=== PATIENT | male | born 1970 | race American Indian/Alaskan Native ===

== ENCOUNTER 2021-05-22 12:17 | Emergency (ER) | payer BC ==
[2021-05-22 12:39] VITALS: BP 239/120
[2021-05-22] MEDS ORDERED: KETOROLAC 10 MG TAB PO ONE (13:53)
[2021-05-22] MEDS ORDERED: SULFAMETHOXAZOLE/TRIMETHOPRIM 800/160MG DS TAB PO ONE (13:53)
--- NOTE | 2021-05-22 14:12 | Emergency Department Report ---
- General Chief complaint: Skin/Abscess/Foreign Body Stated complaint: ABSCESS/LEFT BREAST Time Seen by Provider: 05/22/21 13:52 Source: patient Mode of arrival: Ambulatory Limitations: No Limitations - History of Present Illness Initial comments: 51-year-old black male with a past medical history of hypertension and asthma presents to the emergency department for evaluation of left breast abscess. He states that he noticed tenderness and swelling to left breast 2 to 3 days ago that has gotten progressively worse. He denies any drainage from area. He denies fever, nausea, vomiting, abdominal pain, and fatigue. MD complaint: abscess/boil -: Gradual, days(s) (2-3) Location: chest (Left breast) Severity: moderate Severity scale (0 -10): 7 Quality: aching Consistency: constant Worsens with: palpation, movement Associated symptoms: denies other symptoms Treatments Prior to Arrival: none - Related Data Previous Rx's Medication Instructions Recorded Last Taken Type Cyclobenzaprine [Flexeril] 10 mg PO Q8H PRN #21 tab 10/28/12 Unknown Rx Hydrocodone Bit/Acetaminophen 1 each PO Q6H PRN #20 tablet 10/28/12 Unknown Rx [Lortab 10-500 Tablet] Lisinopril/Hydrochlorothiazide 1 each PO QDAY #60 tablet 10/28/12 Unknown Rx [Zestoretic 20-25 mg] Cephalexin [Keflex] 500 mg PO QID #40 capsule 12/26/12 Unknown Rx Clotrimazole/Betamethasone Dip 1 applicatio TP BID #45 cream..g. 12/26/12 Unknown Rx [Lotrisone Cream] hydrOXYzine HCL [Atarax] 25 mg PO Q6HR PRN #30 tablet 12/26/12 Unknown Rx predniSONE [Deltasone] 50 mg PO QDAY #5 tab 12/26/12 Unknown Rx traMADoL [Ultram] 50 mg PO Q4HR PRN #15 tablet 05/29/13 Unknown Rx Lisinopril/Hydrochlorothiazide 1 tab PO QDAY #90 tablet 03/22/14 Unknown Rx [Zestoretic 20-12.5 mg] Naproxen [Naprosyn] 500 mg PO BID #14 tab 05/22/21 Unknown Rx Sulfamethoxazole/Trimethoprim 1 each PO BID #14 tab 05/22/21 Unknown Rx [Bactrim DS TAB] Allergies Allergy/AdvReac Type Severity Reaction Status Date / Time No Known Allergies Allergy Unverified 10/28/12 20:10 Abscess Boil HPI - HPI Chief Complaint: Skin/Abscess/Foreign Body Stated Complaint: ABSCESS/LEFT BREAST Time Seen by Provider: 05/22/21 13:52 Home Medications: Previous Rx's Medication Instructions Recorded Last Taken Type Cyclobenzaprine [Flexeril] 10 mg PO Q8H PRN #21 tab 10/28/12 Unknown Rx Hydrocodone Bit/Acetaminophen 1 each PO Q6H PRN #20 tablet 10/28/12 Unknown Rx [Lortab 10-500 Tablet] Lisinopril/Hydrochlorothiazide 1 each PO QDAY #60 tablet 10/28/12 Unknown Rx [Zestoretic 20-25 mg] Cephalexin [Keflex] 500 mg PO QID #40 capsule 12/26/12 Unknown Rx Clotrimazole/Betamethasone Dip 1 applicatio TP BID #45 cream..g. 12/26/12 Unknown Rx [Lotrisone Cream] hydrOXYzine HCL [Atarax] 25 mg PO Q6HR PRN #30 tablet 12/26/12 Unknown Rx predniSONE [Deltasone] 50 mg PO QDAY #5 tab 12/26/12 Unknown Rx traMADoL [Ultram] 50 mg PO Q4HR PRN #15 tablet 05/29/13 Unknown Rx Lisinopril/Hydrochlorothiazide 1 tab PO QDAY #90 tablet 03/22/14 Unknown Rx [Zestoretic 20-12.5 mg] Naproxen [Naprosyn] 500 mg PO BID #14 tab 05/22/21 Unknown Rx Sulfamethoxazole/Trimethoprim 1 each PO BID #14 tab 05/22/21 Unknown Rx [Bactrim DS TAB] Allergies/Adverse Reactions: Allergies Allergy/AdvReac Type Severity Reaction Status Date / Time No Known Allergies Allergy Unverified 10/28/12 20:10 ED Review of Systems ROS: Stated complaint: ABSCESS/LEFT BREAST Other details as noted in HPI Comment: All other systems reviewed and negative Constitutional: denies: chills, fever Respiratory: denies: cough, shortness of breath Cardiovascular: denies: chest pain, palpitations, dyspnea on exertion Gastrointestinal: denies: abdominal pain, nausea, vomiting, diarrhea, hematemesis, melena, hematochezia Musculoskeletal: denies: back pain Skin: other (Left breast abscess) Neurological: denies: headache, weakness ED Past Medical Hx - Past Medical History Hx Hypertension: Yes Hx Asthma: Yes - Social History Smoking Status: Current Every Day Smoker Substance Use Type: None - Medications Home Medications: Home Medications Medication Instructions Recorded Confirmed Last Taken Type Cyclobenzaprine [Flexeril] 10 mg PO Q8H PRN #21 tab 10/28/12 Unknown Rx Hydrocodone Bit/Acetaminophen 1 each PO Q6H PRN #20 tablet 10/28/12 Unknown Rx [Lortab 10-500 Tablet] Lisinopril/Hydrochlorothiazide 1 each PO QDAY #60 tablet 10/28/12 Unknown Rx [Zestoretic 20-25 mg] Cephalexin [Keflex] 500 mg PO QID #40 capsule 12/26/12 Unknown Rx Clotrimazole/Betamethasone Dip 1 applicatio TP BID #45 cream..g. 12/26/12 Unknown Rx [Lotrisone Cream] hydrOXYzine HCL [Atarax] 25 mg PO Q6HR PRN #30 tablet 12/26/12 Unknown Rx predniSONE [Deltasone] 50 mg PO QDAY #5 tab 12/26/12 Unknown Rx traMADoL [Ultram] 50 mg PO Q4HR PRN #15 tablet 05/29/13 Unknown Rx Lisinopril/Hydrochlorothiazide 1 tab PO QDAY #90 tablet 03/22/14 Unknown Rx [Zestoretic 20-12.5 mg] Naproxen [Naprosyn] 500 mg PO BID #14 tab 05/22/21 Unknown Rx Sulfamethoxazole/Trimethoprim 1 each PO BID #14 tab 05/22/21 Unknown Rx [Bactrim DS TAB] ED Physical Exam - General Limitations: No Limitations General appearance: alert, in no apparent distress - Head Head exam: Present: atraumatic, normocephalic - Eye Eye exam: Present: normal appearance. Absent: conjunctival injection - Neck Neck exam: Present: normal inspection - Respiratory Respiratory exam: Present: normal lung sounds bilaterally. Absent: respiratory distress, wheezes, rales, rhonchi, stridor - Cardiovascular Cardiovascular Exam: Present: regular rate, normal heart sounds - GI/Abdominal GI/Abdominal exam: Present: soft, normal bowel sounds. Absent: distended, tenderness, guarding, rebound, rigid - Extremities Exam Extremities exam: Present: normal inspection - Back Exam Back exam: Present: normal inspection. Absent: tenderness - Neurological Exam Neurological exam: Present: alert, oriented X3 - Psychiatric Psychiatric exam: Present: normal affect, normal mood - Skin Skin exam: Present: warm, dry, intact, normal color - Expanded Skin Exam Expanded 1 - Noted to have abscessed area that includes areolae that is 3 cm in diameter. Area noted to be erythematous, edematous, tender, and warm to touch. No drainage noted ED Course Vital Signs 05/22/21 05/22/21 12:35 14:21 Temperature 98 F Pulse Rate 82 Respiratory 16 14 Rate Blood Pressure 239/120 [Left] ED Medical Decision Making - Medical Decision Making 51-year-old black male with a past medical history of hypertension and asthma presents to the emergency department for evaluation of left breast abscess. He states that he noticed tenderness and swelling to left breast 2 to 3 days ago that has gotten progressively worse. He denies any drainage from area. He denies fever, nausea, vomiting, abdominal pain, and fatigue Left breast abscess not fluctuant and because of the location, will treat with antibiotics only and no I&D. Patient will be treated with 7-day course of Bactrim DS twice daily along with naproxen 500 mg twice daily. Patient is advised to take medications as prescribed and follow-up with primary care provider if no improvement or worsening symptoms. Patient noted to be hypertensive but states that he has not taken his antihypertensive medication for the last 2 days but plans on taking them as soon as he gets home. He verbalized understanding of and agreement with plan of care. Critical care attestation.: If time is entered above; I have spent that time in minutes in the direct care of this critically ill patient, excluding procedure time. ED Disposition Clinical Impression: Left breast abscess Disposition: HOME / SELF CARE / HOMELESS Is pt being admited?: No Does the pt Need Aspirin: No Condition: Stable Instructions: Skin Abscess, [id number] Additional Instructions: Take medications as prescribed. Follow-up with primary care provider if no improvement or worsening symptoms. Prescriptions: Sulfamethoxazole/Trimethoprim [Bactrim DS TAB] 1 each PO BID #14 tab Naproxen [Naprosyn] 500 mg PO BID #14 tab Referrals: KING MCKOY MD [Referring] - 3-5 Days Time of Disposition: 14:13
== END 2021-05-22 14:50 | disposition home or self-care (01) ==
LOC: ED 12:17
DX: N61.1 Abscess of the breast and nipple (principal); I10 Essential (primary) hypertension; J45.909 Unspecified asthma, uncomplicated; F17.200 Nicotine dependence, unspecified, uncomplicated
CPT/HCPCS: 99282